=== PATIENT | female | born 1995 | race Two or more races ===

== ENCOUNTER 2021-09-25 10:55 | Emergency (ER) | payer MEDICAID, OTHER ==
[~2021-09-25] VITALS: Ht 157.5 cm; Wt 86.6 kg
[2021-09-25 10:59] VITALS: BP 126/78
[2021-09-25] MEDS ORDERED: IBUPROFEN 800 MG TAB PO ONE (13:15)
[2021-09-25] MEDS ORDERED: NAPR500T31 PO ×2 (13:24→13:25)
== END 2021-09-25 13:44 | disposition home or self-care (01) ==
LOC: ER 10:55
DX: M70.52 Other bursitis of knee, left knee (principal); W01.0XXA Fall on same level from slipping, tripping and stumbling without subsequent striking against object, initial encounter; Y93.89 Activity, other specified; Y92.89 Other specified places as the place of occurrence of the external cause; Y99.8 Other external cause status
CPT/HCPCS: 73562